=== PATIENT | male | born 1995 | race Caucasian/White ===

== ENCOUNTER 2023-03-21 16:49 | Observation (INO) | payer OTHER, BC ==
[~2023-03-21] VITALS: Ht 175.3 cm; Wt 67.6 kg
[2023-03-21 19:33] LABS: BASOPHILS ABSOLUTE AUTO 0.07 K/mm3 (0.00-0.23); BASOPHILS PERCENT AUTO 0 % (0-2); EOSINOPHILS ABSOLUTE AUTO 0.01 K/mm3 (0.00-0.68); EOSINOPHILS PERCENT AUTO 0 % (0-6); Hematocrit 35.5 % (37.0-53.0); Hemoglobin 12.4 g/dL (13.5-17.5); IMMATURE GRAN ABSOLUTE AUTO 0.14 K/mm3 (0.00-0.10); IMMATURE GRAN PERCENT AUTO 1 % (0-1); LYMPHOCYTES ABSOLUTE AUTO 1.32 K/mm3 (0.84-5.20); LYMPHOCYTES PERCENT AUTO 5 % (21-46); MONOCYTES ABSOLUTE AUTO 1.17 K/mm3 (0.16-1.47); MONOCYTES PERCENT AUTO 5 % (4-13); Mean Corpuscular HGB 29.6 pg (26.0-34.0); Mean Corpuscular HGB Conc 34.9 g/dL (31.5-36.5); Mean Corpuscular Volume 85 fL (80-100); Mean Platelet Volume 10.4 fL (9.1-12.4); NEUTROPHILS ABSOLUTE AUTO 21.84 K/mm3 (1.96-9.15); NEUTROPHILS PERCENT AUTO 89 % (41-73); Platelet Count 244 K/mm3 (150-400); RDW Coefficient Variation 12.1 % (11.7-14.2); RDW Standard Deviation 37.1 fL (35.1-46.3); Red Blood Cell Count 4.19 M/mm3 (4.30-5.90); White Blood Cell Count 24.55 K/mm3 (4.00-11.30)
[2023-03-21 19:51] LABS: Albumin, Blood 4.3 g/dL (3.4-5.0); Albumin/Globulin Ratio 1.4 (0.8-1.8); Bilirubin, Total 0.6 mg/dL (0.1-1.0); Bun/Creatinine Ratio 14.1 (12.0-20.0); Calcium, Blood 8.8 mg/dL (8.5-10.1); Creatinine, Blood 0.85 mg/dL (0.60-1.20); Globulin, Blood 3.1 g/dL (2.2-4.0); Potassium, Blood 3.1 mmol/L (3.5-5.5); Total Protein, Blood 7.4 g/dL (6.4-8.2)
[2023-03-21 20:19] LABS: Magnesium, Blood 1.9 mg/dL (1.6-2.4)
[2023-03-21 21:50] VITALS: BP 126/71
[2023-03-22] VITALS (15 sets, daily range): BP systolic 119–144; BP diastolic 65–93
--- NOTE | 2023-03-22 05:56 | NUR ---
NOC SHIFT SUMMARY: PT ADMITTED FOR A RIGHT TIB-FIB FX. GOING TO THE OR AT 0800. CHG BATH DONE. 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 ZOFRAN NEEDED. ANCEF SCHEDULED. RIGHT LOWER LEG IN A BRACE. A&O X4.
--- NOTE | 2023-03-22 08:04 | NUR ---
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 TELEPHONE CALL WITH DR JIMÉNEZ RECEIVED ORDER FOR ONE TIME DILAUDID 0.5-1 MG.
--- NOTE | 2023-03-22 09:23 | NUR ---
03/22/23 0923 Raji Cerna PT ON SCHEDULED ANTIBIOTICS AND RECIEVED PRIOR TO ARRIVAL TO OR.
[2023-03-22] MEDS ORDERED: SULTRIDS PO (13:08)
[2023-03-22] MEDS ORDERED: OXYC5 PO (13:08)
[2023-03-22] MEDS ORDERED: BISA10S PR (13:10)
--- NOTE | 2023-03-22 17:17 | NUR ---
DISCHARGE SUMMARY PT A&OX4, VSS/RA, STERLING PO, VOIDING, AMB W/FWW INDEPENDENTLY WBAT, PAIN MANAGED, IV DC'D, DC INS PROVIDED/PT AND GF REP UNDERSTANDING THOSE INSTRUCTIONS. PT LEFT FLOOR VIA WC WITH COPY CHIEF TO GO HOME WITH GF AND FRIEND; FWW AND SCRIPTS WERE IN THEIR POSSESSION/FILLED AT [facility].
== END 2023-03-22 17:00 | disposition home or self-care (01) ==
LOC: EDSEX 16:49 → ER 16:49 → SURS 16:50
PROVIDERS: Emergency Medicine; Orthopaedic Surgery; ADMIT Surgery
PROC: 0QSG06Z Reposition Right Tibia with Intramedullary Internal Fixation Device, Open Approach (ICD-10-PCS; principal; 2023-03-22 07:00)
DX: S82.201B Unspecified fracture of shaft of right tibia, initial encounter for open fracture type I or II (principal); S82.401B Unspecified fracture of shaft of right fibula, initial encounter for open fracture type I or II; W20.8XXA Other cause of strike by thrown, projected or falling object, initial encounter; Y93.H9 Activity, other involving exterior property and land maintenance, building and construction
CPT/HCPCS: 70450; 71045; 72125; 73552; 73590; 73620; 74177; 80053; 83735; 85025; 96366; 96375; 97116; 97161; 97530; A9270; C1769; G0378; J0690; J1170; J1885; J2250; J2405; J2704; J3010; J7030; J7121; Q9967